=== PATIENT | male | born 1985 | race American Indian/Alaskan Native ===

== ENCOUNTER 2016-10-17 19:30 | Emergency (ER) | payer BC ==
[2016-10-17 20:07] VITALS: BP 144/92
--- NOTE | 2016-10-17 21:09 | RAD ---
INDICATION: Left lateral ankle pain after sledding COMPARISON: None. TECHNIQUE: 3 views of the left ankle were obtained. FINDINGS: There is moderate soft tissue swelling overlying the fibular malleolus. The well corticated bones exhibit normal alignment. Joint spaces appear maintained. No fracture is seen. IMPRESSION: SOFT TISSUE SWELLING OVERLYING THE FIBULAR MALLEOLUS WITHOUT UNDERLYING BONY ABNORMALITY. If the patient's symptoms persist, follow-up imaging is recommended.
--- NOTE | 2016-10-17 21:18 | ED ---
Lower Extremity - HPI Summary HPI Summary: 31 M presents with left ankle pain and edema s/p sled accident today. He was going down the hill and stuck his leg out when he foot got stuck underneath him and rolled inward. He denies any numbness or tingling. He denies any previous injury to his ankle. - History of Current Complaint Chief Complaint: EDExtremityLower Stated Complaint: LEFT FOOT INJURY Time Seen by Provider: 10/17/16 20:13 Pain Intensity: 5 - Allergies/Home Medications Allergies/Adverse Reactions: Allergies Allergy/AdvReac Type Severity Reaction Status Date / Time No Known Allergies Allergy Verified 06/25/13 07:40 PMH/Surg Hx/FS Hx/Imm Hx Endocrine/Hematology History: Denies: Hx Diabetes, Hx Thyroid Disease Cardiovascular History: Denies: Hx Hypertension Respiratory History: Denies: Hx Asthma, Hx Chronic Obstructive Pulmonary Disease (COPD) GI History: Denies: Hx Ulcer Infectious Disease History: No Infectious Disease History: Denies: Hx Hepatitis, Hx Human Immunodeficiency Virus (HIV), Traveled Outside the in Last 30 Days - Social History Alcohol Use: Rare Substance Use Type: Reports: None Smoking Status (MU): Never Smoked Tobacco Review of Systems Negative: Fever Negative: Chest Pain Negative: Shortness Of Breath Positive: Myalgia - left ankle pain All Other Systems Reviewed And Are Negative: Yes Physical Exam Triage Information Reviewed: Yes Vital Signs On Initial Exam: Initial Vitals Temp Pulse Resp BP Pulse Ox 98.4 F 75 16 144/92 100 10/17/16 20:03 10/17/16 20:03 10/17/16 20:03 10/17/16 20:03 10/17/16 20:03 Vital Signs Reviewed: Yes Appearance: Positive: Well-Appearing Skin: Positive: Warm, Dry Head/Face: Positive: Normal Head/Face Inspection Eyes: Positive: Normal, Conjunctiva Clear ENT: Positive: Normal ENT inspection, Pharynx normal, TMs normal Respiratory/Lung Sounds: Positive: Clear to Auscultation, Breath Sounds Present Cardiovascular: Positive: Normal, RRR Musculoskeletal: Positive: Strength/ROM Intact - of toes and knee left, Limited @ - of left ankle, Edema Left - over left distal end of fibula, Other - good pulses, capillary refill <2 secs, sensation grossly intact Diagnostics - Vital Signs Vital Signs Temp Pulse Resp BP Pulse Ox 10/17/16 20:03 98.4 F 75 16 144/92 100 - Laboratory Lab Statement: Any lab studies that have been ordered have been reviewed, and results considered in the medical decision making process. - Radiology ankle Xray Interpretation: No Acute Changes Radiology Interpretation Completed By: Radiologist Lower Extremity Course/Dx - Course Course Of Treatment: 31 M presents with L ankle pain s/p turning ankle in sledding accident. neurovascular intact, obvious swelling of ankle present on lateral aspect of ankle, xray normal, will treat as sprain, patient agrees with plan - Diagnoses Differential Diagnosis/HQI/PQRI: Positive: Contusion, Fracture (Closed), Sprain , Strain Provider Diagnoses: Left ankle injury Discharge - Discharge Plan Condition: Good Disposition: HOME Patient Education Materials: Ankle Sprain (ED) Forms: *Work Release Referrals: Rhett Carranza MD [Primary Care Provider] - Additional Instructions: Stay off ankle as possible as possible Ice, elevate, keep in CARMEN Ibuprofen every 6 hours for pain Follow up with primary if no improvement Return to ED if develop any numbness or tingling or any new or worsening symptoms
== END 2016-10-17 22:07 | disposition home or self-care (01) ==
LOC: ED 19:30
DX: S99.912A Unspecified injury of left ankle, initial encounter (principal); M25.572 Pain in left ankle and joints of left foot; R60.0 Localized edema; X50.0XXA Overexertion from strenuous movement or load, initial encounter; Y93.23 Activity, snow (alpine) (downhill) skiing, snowboarding, sledding, tobogganing and snow tubing; Y92.9 Unspecified place or not applicable; Y99.9 Unspecified external cause status
CPT/HCPCS: 99281